=== PATIENT | male | born 1940 | race Caucasian/White ===

== ENCOUNTER → 2019-03-09 14:01 | Outpatient (CLI) | payer MEDICARE, OTHER ==
[2015-10-28 14:37] VITALS: BMI 25.3
[~2019-03-09 14:01] MED LIST: BAYER CHEWABLE81 MG PO; CO Q-1030 MG PO; COREG 3.1253.125 MG PO; PROTONIX40 MG PO; ZESTRIL20 MG PO
== END | disposition home or self-care (01) ==
LOC: D.HCCECHO 14:01
PROVIDERS: ATTEND Internal Medicine Cardiovascular Disease
DX: I34.0 Nonrheumatic mitral (valve) insufficiency (principal)